=== PATIENT | male | born 1970 | race Caucasian/White ===

== ENCOUNTER → 2016-05-28 | Day surgery (SDC) | payer OTHER ==
[~2016-05-28] VITALS: Ht 177.8 cm; Wt 86.2 kg
--- NOTE | 2016-05-28 08:13 | Operative Report ---
Operative/Inv Procedure Report Surgery Date: 05/28/16 Name of Procedure: Manipulation left knee under general anesthesia with muscle relaxation. Pre-Operative Diagnosis: Arthrofibrosis (contracture) left knee with stiffness. Post-Operative Diagnosis: Same. Estimated Blood Loss: none Surgeon/Research And Development Engineer: ELVIS ROSS MD Anesthesia: laryngeal mask airway Monitors: EKG/BP/oxygen saturation IV Fluids: Lactated Ringer's. Implants: None. Urine Output: None. Drains: None. Specimens: None. Microbiology: None. Tourniquet: None. Complications: None known. Condition: Stable. 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 The patient worked diligently with physical therapy and with home exercises yet he continued to lose knee flexion range of motion over time. We also tried a static progressive knee flexion splint which provided only equivocal improvement in his left knee flexion range of motion. Given the overall progressive loss of knee range of motion (flexion) and difficulty with navigating stairs in both directions as well as with difficulty with simple ambulation and with symptoms not responding to any attempts at noninterventional management I did recommend that we perform a manipulation of the left knee under general anesthesia with maximal muscle relaxation. We did discuss the risks and benefits and expected outcomes of continued attempts at noninterventional nonoperative management of his left knee stiffness. We did discuss the same with respect to the above-noted manipulation of the knee under general anesthesia. In particular we did discuss the possibility of causing an iatrogenic fracture or iatrogenic soft tissue injury to the knee which might need to be dealt with subsequent to the manipulation procedure. All the patient's questions were answered at length. He did wish to proceed with manipulation of the knee under general anesthesia and surgical consent was obtained. Operative/Procedure Note Note: The patient was brought to the operating room and placed on the operating room table in the supine position. General anesthesia with maximal muscle relaxation was induced by the anesthesia team. Once the patient was under general anesthesia with maximal muscle relaxation range of motion for the patient's left knee before manipulation was checked and compared to the contralateral unaffected right knee. The unaffected right knee showed a range of motion of 0 full extension to about 135 of knee flexion. The affected left knee showed an initial pre-manipulation range of motion of 0 full extension and knee flexion limited to about 70. The left knee was then manipulated into flexion by flexing the hip and applying an anterior to posterior force applied to the upper tibia around the level of the tibial tubercle. With gentle progressive flexion force applied to the knee adhesions within the knee started to break up which was appreciated audibly as well as palpably. This was accompanied by a gradual progressive increase in knee flexion range of motion. This process was continued until maximal knee flexion was obtained. Postmanipulation range of motion for the left knee had increased knee flexion motion to about 130-135 of knee flexion which was just about symmetric on side to side comparison to the contralateral right knee with both knees maximally flexed simultaneously for comparison. There was a slightly springy soft tissue end feel at maximal knee flexion which could not be improved any further. The knee was then flexed and extended very gently showing range of motion of 0-130/35 without any residual crepitus. The patella seemed to track well with knee flexion and extension. I appreciated no gross instability on gentle stress testing of the knee ligaments postmanipulation. The patient was subsequently awakened from general anesthesia with muscle relaxation and transferred to the stretcher and brought to the recovery room in stable condition having tolerated the procedure well.
== END ==
LOC: STS 04:03
DX: M24.562 Contracture, left knee (principal); M24.662 Ankylosis, left knee; Z98.890 Other specified postprocedural states
CPT/HCPCS: J0690; J2795